=== PATIENT | female | born 1995 | race Caucasian/White ===

== ENCOUNTER 2016-10-01 15:57 | Emergency (ER) | payer BC ==
[~2016-10-01] VITALS: Ht 162.6 cm; Wt 66.7 kg
[~2016-10-01 15:57] MED LIST: ALBU6.7H INH; MEDR4PAK3 PO; ZITH250T PO
[2016-10-01 16:01] VITALS: BP 119/80; PULSE 94; RESP 16; TEMP 98.6; O2SAT 98
--- NOTE | 2016-10-01 16:05 | PD ---
HPI . Left wrist pain for one week Chief Complaint: Musculoskeletal Complaint Time Seen by Provider: 16:05 Travel History International Travel<30 days: No Contact w/Intl Traveler<30days: No Traveled to known affect area: No History of Present Illness HPI 21-year-old female with no past medical history here with complaints of falling on her left wrist approximately one week ago. Unfortunately she was in some financial bind and had to keep working despite this injury and could not seek medical attention. 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 She has not seen any one for this injury. She admits to pain with rotation of the wrist. There is very minimal swelling. She does have point tenderness over the distal ulna. Currently at this moment she denies any pain, but admits to throbbing sensation. She is neurovascularly intact. There are no other complaints. No head injury. PFSH Past Medical History Medical History: Denies Significant Hx Diminished Hearing: No Psychiatric: Yes (ADJUSTMENT REACTION.) Immunizations Current: Yes Migraines: Yes ?: Not Menopausal: No Social History Alcohol Use: No (OCCASIONALLY) Tobacco Use: No Substance Use: No Allergies-Medications (Allergen,Severity, Reaction): Coded Allergies: No Known Allergies (Verified , 10/01/16) Reported Meds & Prescriptions Reported Meds & Active Scripts Active No Active Prescriptions or Reported Medications Review of Systems General / Constitutional: No: Fever Eyes: No: Visual changes HENT: No: Headaches Cardiovascular: No: Chest Pain or Discomfort Respiratory: No: Shortness of Breath Gastrointestinal: No: Abdominal Pain Genitourinary: No: Dysuria Musculoskeletal: Positive: Pain (left wrist pain) Skin: No Rash Neurologic: No: Weakness Psychiatric: No: Depression Endocrine: No: Polydipsia Hematologic/Lymphatic: No: Easy Bruising Physical Exam Narrative GENERAL: AAO x 3, no acute distress, Well-nourished, well-developed patient. SKIN: Warm and dry. No visible rashes or bruising. Mild erythema over the left wrist HEAD: Normocephalic and atraumatic. EYES: No scleral icterus. No injection or drainage. ENT: No nasal drainage noted. Mucous membranes pink. Airway patent. NECK: Supple, trachea midline. No JVD. CARDIOVASCULAR: Regular rate and rhythm without murmurs, gallops, or rubs. RESPIRATORY: Breath sounds equal bilaterally. No accessory muscle use. No rhonchi or rales. GASTROINTESTINAL: Abdomen soft, non-tender, nondistended. EXTREMITIES: No cyanosis or edema. Mild erythema over left wrist. There is point tenderness over the distal ulna. No significant edema. No ecchymosis. Range of motion is limited by pain. Extension is normal. Pain elicited with rotation. BACK: Nontender without obvious deformity. No CVA tenderness. PSYCH: AAO x 3, normal affect. Data Data Last Documented VS Vital Signs Date Time Temp Pulse Resp B/P Pulse Ox O2 Delivery O2 Flow Rate FiO2 10/01/16 16:01 98.6 94 16 119/80 98 Orders Ed Urine Pregnancytest Poc (10/01/16 16:07) Wrist, Complete ([id number]) (10/01/16 16:07) ^ Anatoly Bandage (10/01/16 16:54) MDM Medical Decision Making Medical Screen Exam Complete: Yes Emergency Medical Condition: Yes Medical Record Reviewed: Yes Differential Diagnosis left wrist sprain, left wrist contusion, left wrist fracture Narrative Course 21-year-old female with no past medical history here with complaints of falling on her left wrist approximately one week ago. Unfortunately she was in some financial bind and had to keep working despite this injury and could not seek medical attention. 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 She has not seen any one for this injury. She admits to pain with rotation of the wrist. There is very minimal swelling. She does have point tenderness over the distal ulna. Currently at this moment she denies any pain, but admits to throbbing sensation. She is neurovascularly intact. There are no other complaints. No head injury. Patient seen and examined. She does have tenderness over the distal ulna as well as tenderness with rotation of her wrist. We'll go ahead and check an x-ray. I do not think there is an acute fracture, but she does likely have some type of sprain or contusion. Xray is negative for acute fracture. Discussed anatoly wrap and OTC NSAIDS Patient verbalized understanding of instructions, questions were answered, and thanked me for their care. I advised them if their condition worsens, please return to the nearest emergency room for further care. Diagnosis Primary Impression: Sprain of left wrist Qualified Code: S63.502A - Sprain of left wrist, initial encounter Patient Instructions: General Instructions, Wrist Sprain (ED) Additional Instructions: Please return to emergency department if your symptoms return or worsen. Follow up with your primary care provider. Use [id number] Tylenol, ibuprofen, Aleve as needed for pain. Keep area wrapped as needed for support. You can try ice to help get rid of the inflammation. Med/Other Pt SpecificInfo: No Change to Meds Scripts No Active Prescriptions or Reported Meds Disposition: 01 DISCHARGE HOME Condition: Stable Liseth Goodman Oct 01, 2016 16:05
--- NOTE | 2016-10-01 16:49 | RADHPO ---
EXAM DATE/TIME: 10/01/2016 16:17 [facility] COMPARISON: No previous studies available for comparison. INDICATIONS : Left wrist pain after fall 10 days ago MEDICAL HISTORY : None. SURGICAL HISTORY : None. ENCOUNTER: Initial ACUITY: 1 week PAIN SCORE: 4/10 LOCATION: Left posterior wrist FINDINGS: Three views of the left wrist demonstrate no fracture or dislocation. Mineralization is within normal limits. There is no significant arthropathy. No soft tissue abnormality or radiopaque foreign body i s identified. CONCLUSION: No acute abnormality is identified. Omari Ramos MD on October 01, 2016 at 16:46 Board Certified Radiologist. This report was verified electronically.
== END 2016-10-01 18:01 | disposition home or self-care (01) ==
LOC: PHEFT 15:57
DX: S63.502A Unspecified sprain of left wrist, initial encounter (principal); W19.XXXA Unspecified fall, initial encounter; Y93.9 Activity, unspecified; Y92.9 Unspecified place or not applicable
CPT/HCPCS: 73110; 84703; 99283

== ENCOUNTER 2017-01-31 23:07 | Emergency (ER) | payer BC ==
[~2017-01-31] VITALS: Ht 162.6 cm; Wt 64.3 kg
[2017-01-31 23:12] VITALS: BP 131/79; PULSE 77; RESP 14; TEMP 98.3; O2SAT 100
--- NOTE | 2017-01-31 23:34 | PD ---
HPI Chief Complaint: Abdominal Pain Time Seen by Provider: 23:19 Travel History International Travel<30 days: No Contact w/Intl Traveler<30days: No Traveled to known affect area: No History of Present Illness HPI This 21-year-old female is complaining of lower abdominal pain. She has been having this pain for several weeks but seems to be getting worse. She has a pain in the lower back which is worse on the right. She also has some lower abdominal pain which is worse on the right has about 2 episodes of this pain for a week. It seems to be getting more frequently. She just finished her period. About a month ago she had a positive test for chlamydia and was treated with 4 pills. She has not noted vaginal discharge since then. She had an episode of nausea and vomiting about 2 weeks ago which seemed to clear up. She is not aware of fever PFSH Past Medical History Medical History: Denies Significant Hx Weight (Kg): 3 Diminished Hearing: No Psychiatric: Yes (ADJUSTMENT REACTION.) Immunizations Current: Yes Migraines: Yes Tetanus Vaccination: > 5 Years Influenza Vaccination: No ?: Not LMP: 01/25/17 Menopausal: No Past Surgical History Surgical History: No Previous Surgery Social History Alcohol Use: Yes (OCCASIONALLY) Tobacco Use: No Substance Use: No Allergies-Medications (Allergen,Severity, Reaction): Coded Allergies: No Known Allergies (Verified , 10/01/16) Reported Meds & Prescriptions Reported Meds & Active Scripts Active Lortab (Hydrocodone-Acetaminophen) 7.5-325 Mg Tab 1 Tab PO Q4H PRN Doxycycline Hyclate 100 Mg Cap 100 Mg PO BID Review of Systems General / Constitutional: No: Fever, Chills Eyes: No: Diploplia HENT: No: Headaches, Vertigo Cardiovascular: No: Chest Pain or Discomfort, Palpitations Respiratory: No: Cough, Shortness of Breath Gastrointestinal: Positive: Nausea, No: Vomiting Genitourinary: Positive: Pelvic Pain, No: Frequency Skin: No Rash Neurologic: No: Weakness, Dizziness Hematologic/Lymphatic: No: Easy Bruising Physical Exam Narrative GENERAL: Well-developed female SKIN: Focused skin assessment warm/dry. HEAD: Atraumatic. Normocephalic. EYES: Pupils equal and round. No scleral icterus. No injection or drainage. ENT: No nasal bleeding or discharge. Mucous membranes pink and moist. NECK: Trachea midline. No JVD. CARDIOVASCULAR: Regular rate and rhythm. No murmur appreciated. RESPIRATORY: No accessory muscle use. Clear to auscultation. Breath sounds equal bilaterally. GASTROINTESTINAL: Abdomen soft,, nondistended. Hepatic and splenic margins not palpable. There is some lower abdominal tenderness greater on the right MUSCULOSKELETAL: No obvious deformities. No clubbing. No cyanosis. No edema. NEUROLOGICAL: Awake and alert. No obvious cranial nerve deficits. Motor grossly within normal limits. Normal speech. PSYCHIATRIC: Appropriate mood and affect; insight and judgment normal. Data Data Last Documented VS Vital Signs Date Time Temp Pulse Resp B/P Pulse Ox O2 Delivery O2 Flow Rate FiO2 01/31/17 23:23 18 01/31/17 23:12 98.3 77 131/79 100 Orders Complete Blood Count With Diff (01/31/17 23:26) Basic Metabolic Panel (Bmp) (01/31/17 23:26) Urinalysis - C+S If Indicated (01/31/17 23:26) Ed Urine Pregnancytest Poc (01/31/17 23:26) Gc And Chlamydia Pcr (01/31/17 23:26) Ceftriaxone Inj (Rocephin Inj) (01/31/17 23:45) Acetamin-Hydrocod 325-7.5 Mg ([place] 7.5 (02/01/17 00:00) [facility] Medical Decision Making Medical Screen Exam Complete: Yes Emergency Medical Condition: Yes Medical Record Reviewed: Yes Differential Diagnosis Differential includes ovarian cyst, PID, cervicitis Narrative Course History is not consistent with appendicitis nor is the examination. Exam is consistent with cervicitis, possible ovarian cyst. She was treated for a month ago though this may have recurred. She will be given Rocephin and prescription for doxycycline. She'll also be given prescription for Lortab to use as she doesn't feel the Motrin has been helping sufficiently Diagnosis Primary Impression: Cervicitis Additional Impression: Ovarian cyst Scripts Hydrocodone-Acetaminophen (Lortab)7.5-325 Mg Tab1 Tab PO Q4H PRN (PAIN) #20 TAB Ref 0 Prov:Adan Donovan MD 01/31/17 Doxycycline Hyclate 100 Mg [id number] Mg PO BID #20 CAP Prov:Adan Donovan MD 01/31/17 Disposition: 01 DISCHARGE HOME Condition: Stable Adan Donovan MD Jan 31, 2017 23:34
[2017-01-31] MEDS ORDERED: cefTRIAXone INJ 1,000 MG in SODIUM CHLORIDE 0.9% INJ 100 ML IV ONE (23:45)
[2017-01-31] MEDS ORDERED: DOXY100C PO (23:47)
[2017-01-31] MEDS ORDERED: HYDR-3534 PO (23:47)
[2017-01-31 23:58] LABS: GLUCOSE,URINE NEG (NEG); KETONE, URINE NEG (NEG); NITRITE,URINE NEG (NEG)
[2017-01-31 23:59] LABS: AUTOMATED NEUTROPHIL # 5.5 TH/MM3 (1.8-7.7); BASOPHIL # 0.1 TH/MM3 (0-0.2); BASOPHIL % 0.6 % (0.0-2.0); EOSINOPHIL # 0.1 TH/MM3 (0-0.4); EOSINOPHIL % 1.3 % (0.0-4.0); HEMATOCRIT 43.9 % (35.0-46.0); HEMO FLAGS DIFF FINAL; LYMPH % 34.4 % (9.0-44.0); LYMPHOCYTE # 3.5 TH/MM3 (1.0-4.8); MEAN CELL VOLUME 87.3 FL (80.0-100.0); MEAN CORPUSCULAR HEMOGLOBIN 29.8 PG (27.0-34.0); MEAN CORPUSCULAR HGB CONC 34.2 % (32.0-36.0); MONO % 9.2 % (0.0-8.0); NEUT % 54.5 % (16.0-70.0); PLATELET COUNT 308 TH/MM3 (150-450); RED BLOOD COUNT 5.03 MIL/MM3 (4.00-5.30); RED CELL DISTRIBUTION WIDTH 11.6 % (11.6-17.2); WHITE BLOOD COUNT 10.1 TH/MM3 (4.0-11.0)
[2017-02-01] MEDS ORDERED: ACETAMINOPHEN/HYDROcodone 325 MG/7.5 MG TAB PO ONE
[2017-02-01 00:01] LABS: BLOOD, URINE MOD (NEG); URINE COLOR YELLOW (YELLW/STRAW)
[2017-02-01 00:05] LABS: BACTERIA, URINE OCC /hpf; COMMENT (UR) CULTURE INDICATED; CULTURE IF INDICATED CULTURE INDICATED; POTASSIUM 3.8 MEQ/L (3.5-5.1); SQUAMOUS EPITHELIAL CELL URINE 0-5 /hpf (0-5)
[2017-02-01 00:08] LABS: BICARBONATE 28.3 MEQ/L (21.0-32.0)
[2017-02-01 00:26] VITALS: BP 126/72; PULSE 72; RESP 18; O2SAT 99
[2017-02-01] MEDS ORDERED: MACR100C2 PO (00:34)
--- NOTE | 2017-02-01 00:34 | PD ---
Physical Exam Date Seen by Provider: Feb 01, 2017 Time Seen by Provider: 00:00 Narrative Patient signed out to me by Dr. Platt at 12 AM, awaiting lab work. Suspected cervicitis, treated with antibiotics in the ER. Laboratory Tests Test 01/31/17 23:50 Monocytes (%) (Auto) 9.2 % (0.0-8.0) Urine Occult Blood MOD (NEG) Urine Leukocyte Esterase SMALL (NEG) Urine RBC 10-14 /hpf (0-3) Urine WBC 9-14 /hpf (0-5) Urine Bacteria OCC /hpf (NONE) Estimat Glomerular Filtration 88 ML/MIN (>89) Rate Lab work shows significant UTI as well my plan would be to treat her UTI and have her follow-up with primary care physician. Return for any worsening in symptoms as necessary. The plan has been discussed with her and she states understanding. Data Data Last Documented VS Vital Signs Date Time Temp Pulse Resp B/P Pulse Ox O2 Delivery O2 Flow Rate FiO2 02/01/17 00:26 72 18 126/72 99 Room Air 01/31/17 23:12 98.3 Orders Complete Blood Count With Diff (01/31/17 23:26) Basic Metabolic Panel (Bmp) (01/31/17 23:26) Urinalysis - C+S If Indicated (01/31/17 23:26) Ed Urine Pregnancytest Poc (01/31/17 23:26) Gc And Chlamydia Pcr (01/31/17 23:26) Ceftriaxone Inj (Rocephin Inj) (01/31/17 23:45) Acetamin-Hydrocod 325-7.5 Mg ([place] 7.5 (02/01/17 00:00) Urine Culture (01/31/17 23:50) Azithromycin Powd Pack (Zithromax Powd P (02/01/17 00:45) Labs Laboratory Tests Test 01/31/17 23:50 White Blood Count 10.1 TH/MM3 Red Blood Count 5.03 MIL/MM3 Hemoglobin 15.0 GM/DL Hematocrit 43.9 % Mean Corpuscular Volume 87.3 FL Mean Corpuscular Hemoglobin 29.8 PG Mean Corpuscular Hemoglobin 34.2 % Concent Red Cell Distribution Width 11.6 % Platelet Count 308 TH/MM3 Mean Platelet Volume 7.2 FL Neutrophils (%) (Auto) 54.5 % Lymphocytes (%) (Auto) 34.4 % Monocytes (%) (Auto) 9.2 % Eosinophils (%) (Auto) 1.3 % Basophils (%) (Auto) 0.6 % Neutrophils # (Auto) 5.5 TH/MM3 Lymphocytes # (Auto) 3.5 TH/MM3 Monocytes # (Auto) 0.9 TH/MM3 Eosinophils # (Auto) 0.1 TH/MM3 Basophils # (Auto) 0.1 TH/MM3 CBC Comment DIFF FINAL Differential Comment Urine Color YELLOW Urine Turbidity CLEAR Urine pH 6.0 Urine Specific [place] 1.015 Urine Protein NEG mg/dL Urine Glucose (UA) NEG mg/dL Urine Ketones NEG mg/dL Urine Occult Blood MOD Urine Nitrite NEG Urine Bilirubin NEG Urine Leukocyte Esterase SMALL Urine RBC 10-14 /hpf Urine WBC 9-14 /hpf Urine Squamous Epithelial 0-5 /hpf Cells Urine Bacteria OCC /hpf Microscopic Urinalysis Comment CULTURE INDICATED Sodium Level 141 MEQ/L Potassium Level 3.8 MEQ/L Chloride Level 107 MEQ/L Carbon Dioxide Level 28.3 MEQ/L Anion Gap 6 MEQ/L Blood Urea Nitrogen 14 MG/DL Creatinine 0.83 MG/DL Estimat Glomerular Filtration 88 ML/MIN Rate Random Glucose 101 MG/DL Calcium Level 9.1 MG/DL [facility] Medical Record Reviewed: Yes Supervised Visit with [place]: No Diagnosis Primary Impression: Cervicitis Additional Impressions: Ovarian cyst UTI (urinary tract infection) Patient Instructions: General Instructions Departure Forms: Tests/Procedures Scripts Nitrofurantoin Monohydrate Macrocrystals (Macrobid)100 Mg [id number] Mg PO BID 7 Days Ref 0 Prov:Madiha Linares MD 02/01/17 Hydrocodone-Acetaminophen (Lortab)7.5-325 Mg Tab1 Tab PO Q4H PRN (PAIN) #20 TAB Ref 0 Prov:Adan Donovan MD 01/31/17 Doxycycline Hyclate 100 Mg [id number] Mg PO BID #20 CAP Prov:Adan Donovan MD 01/31/17 Disposition: 01 DISCHARGE HOME Condition: Stable Madiha Linares MD Feb 01, 2017 00:34
[2017-02-01] MEDS ORDERED: AZITHROMYCIN PWD FOR SUSP 1 GM PACKET PO ONE (00:45)
[2017-02-01 01:00] VITALS: BP 122/72; PULSE 72; RESP 18; O2SAT 99
[2017-02-01 05:01] LABS: CHLAMYDIA PCR DETECTED (NOT DETECT); NEISSERIA PCR NOT DETECTED (NOT DETECT)
== END 2017-02-01 01:05 | disposition home or self-care (01) ==
LOC: PHED 23:07
DX: N72 Inflammatory disease of cervix uteri (principal); B96.89 Other specified bacterial agents as the cause of diseases classified elsewhere; N83.209 Unspecified ovarian cyst, unspecified side
CPT/HCPCS: 80048; 81001; 84703; 85025; 87086; 87491; 87591; 96365; 99284; J0696

== ENCOUNTER 2017-03-18 19:05 | Emergency (ER) | payer BC ==
[~2017-03-18] VITALS: Ht 162.6 cm; Wt 65.0 kg
[~2017-03-18 19:05] MED LIST changes: -ALBU6.7H INH; +DOXY100C PO; +HYDR-3534 PO; +MACR100C2 PO; -MEDR4PAK3 PO; -ZITH250T PO
[2017-03-18 19:08] VITALS: BP 145/77; PULSE 92; RESP 16; TEMP 98.7; O2SAT 99
--- NOTE | 2017-03-18 19:59 | PD ---
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 The back pain is reproducible by movement and by pressing on the right side of the lumbosacral area. The patient denies any fever. She was treated apparently with doxycycline and metronidazole for bacterial vaginosis and Chlamydia area she states that the medicine made her nauseated, she does not know which medicine made her nauseated and she did not complete the medicine. She claims not to been sexually active since last exam. She is G0, P0, A0. PFSH Past Medical History Medical History: Denies Significant Hx Weight (Kg): 3 Diminished Hearing: No Headaches: Yes (OCCASIONAL HEADACHES) Psychiatric: Yes (ADJUSTMENT REACTION.) Immunizations Current: Yes Migraines: Yes Influenza Vaccination: No ?: Not LMP: 02/21/17 Menopausal: No Past Surgical History Surgical History: No Previous Surgery Section: Yes Social History Alcohol Use: Yes (OCCASIONALLY) Tobacco Use: Yes Substance Use: Yes (occasionally marijuana) Allergies-Medications (Allergen,Severity, Reaction): Coded Allergies: No Known Allergies (Verified , 10/01/16) Reported Meds & Prescriptions Reported Meds & Active Scripts Active Review of Systems Except as stated in HPI: all other systems reviewed are Neg Physical Exam Narrative GENERAL: The patient is alert, oriented 3 and slight apparent distress with her low back pain and pelvic discomfort. Her vital signs show blood pressure once 145/77 and pulse rate of 92 but otherwise normal. SKIN: Focused skin assessment warm/dry. HEAD: Atraumatic. Normocephalic. EYES: Pupils equal and round. No scleral icterus. No injection or drainage. ENT: No nasal bleeding or discharge. Mucous membranes pink and moist. NECK: Trachea midline. No JVD. CARDIOVASCULAR: Regular rate and rhythm. No murmur appreciated. RESPIRATORY: No accessory muscle use. Clear to auscultation. Breath sounds equal bilaterally. GASTROINTESTINAL: Abdomen soft, with minimal discomfort to direct palpation in the bilateral pelvis, nondistended. Hepatic and splenic margins not palpable. No guarding or rebound is present. MUSCULOSKELETAL: No obvious deformities. No clubbing. No cyanosis. No edema. I can completely reproduce the patient's back pain by pressing on the musculature to the right of the lumbosacral area. This is about 10 cm away from the midline. NEUROLOGICAL: Awake and alert. No obvious cranial nerve deficits. Motor grossly within normal limits. Normal speech. PSYCHIATRIC: Appropriate mood and affect; insight and judgment normal. GENITOURINARY: Normal external genitalia without lesions or erythema. Vaginal vault without blood and there is a white, [id number] drainage. Cervical os was closed with clear drainage. No cervical motion tenderness. Uterus nontender and nonenlarged. Bilateral adnexa nontender without masses. Data Data Last Documented VS Vital Signs Date Time Temp Pulse Resp B/P (MAP) Pulse Ox O2 Delivery O2 Flow Rate FiO2 03/18/17 19:08 98.7 92 16 145/77 (99) 99 Orders Orders Complete Blood Count With Diff (03/18/17 19:51) Basic Metabolic Panel (Bmp) (03/18/17 19:51) Gc And Chlamydia Pcr (03/18/17 19:51) Wet Prep Profile (03/18/17 19:51) Urinalysis - C+S If Indicated (03/18/17 19:51) Ed Urine Pregnancytest Poc (03/18/17 19:51) Labs Laboratory Tests Test 03/18/17 20:00 03/18/17 20:10 Urine Collection Type CLEAN CATCH Urine Color YELLOW Urine Turbidity CLOUDY Urine pH 7.5 Urine Specific [place] 1.019 Urine Protein TRACE mg/dL Urine Glucose (UA) NEG mg/dL Urine Ketones NEG mg/dL Urine Occult Blood SMALL Urine Nitrite NEG Urine Bilirubin NEG Urine Leukocyte Esterase NEG Urine RBC 0-3 /hpf Urine WBC 0-2 /hpf Urine Amorphous Sediment MOD Urine Bacteria FEW /hpf Microscopic Urinalysis Comment CULT NOT INDICATED Urine Collection Time 2000 Clue Cells (Wet Prep) NONE SEEN Vaginal Trichomonas (Wet Prep) NONE SEEN Vaginal Yeast (Wet Prep) NONE SEEN White Blood Count 7.8 TH/MM3 Red Blood Count 4.55 MIL/MM3 Hemoglobin 13.7 GM/DL Hematocrit 40.0 % Mean Corpuscular Volume 87.9 FL Mean Corpuscular Hemoglobin 30.0 PG Mean Corpuscular Hemoglobin Concent 34.2 % Red Cell Distribution Width 11.8 % Platelet Count 273 TH/MM3 Mean Platelet Volume 7.5 FL Neutrophils (%) (Auto) 63.8 % Lymphocytes (%) (Auto) 27.4 % Monocytes (%) (Auto) 7.6 % Eosinophils (%) (Auto) 0.6 % Basophils (%) (Auto) 0.6 % Neutrophils # (Auto) 5.1 TH/MM3 Lymphocytes # (Auto) 2.1 TH/MM3 Monocytes # (Auto) 0.6 TH/MM3 Eosinophils # (Auto) 0.0 TH/MM3 Basophils # (Auto) 0.0 TH/MM3 CBC Comment DIFF FINAL Differential Comment Blood Urea Nitrogen 14 MG/DL Creatinine 0.68 MG/DL Random Glucose 97 MG/DL Calcium Level 8.6 MG/DL Sodium Level 139 MEQ/L Potassium Level 3.8 MEQ/L Chloride Level 107 MEQ/L Carbon Dioxide Level 24.7 MEQ/L Anion Gap 7 MEQ/L Estimat Glomerular Filtration Rate 110 ML/MIN MDM Medical Decision Making Medical Screen Exam Complete: Yes Emergency Medical Condition: Yes Medical Record Reviewed: Yes Interpretation(s) The wet prep is negative for clue cells, Trichomonas and yeast. The basic metabolic profile is normal. The urine shows cloudy turbidity, small occult blood but is otherwise unremarkable and culture is not indicated. The CBC is normal. The urine test is negative. Differential Diagnosis PID, muscle strain lumbosacral area, herniated nucleus pulposus, bacterial vaginosis, Trichomonas vaginitis, monilial vaginitis, Narrative Course At this time there is no evidence for PID or pelvic infection at this time. The wet prep, CBC and basic metabolic profile are all normal. She does have an acute lumbosacral strain. She is not . Plan: The patient be put on Flexeril and Motrin. 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 Diagnosis Primary Impression: Acute lumbosacral myofascial strain Additional Instructions: For about 3 days take the Motrin regularly, 1 tablet 3 times daily. This will give you high anti-inflammatory levels and this usually helps this kind of back pain to go away. The Flexeril can make you sleepy, it is one tablet 3 times daily. Follow-up with a primary care physician/physical therapy instructor as soon as you can. Med/Other Pt SpecificInfo: Prescription(s) given Scripts Ibuprofen (Ibuprofen) 600 Mg Tab 600 MG PO TID, #33 TAB 0 Refills Prov: Esvin Vila MD 03/18/17 Cyclobenzaprine (Flexeril) 10 Mg Tab 10 MG PO TID for Muscle Spasm, #30 TAB 0 Refills Prov: Esvin Vila MD 03/18/17 Disposition: 01 DISCHARGE HOME Condition: Stable Esvin Vila MD Mar 18, 2017 19:59
[2017-03-18 20:11] LABS: BLOOD, URINE SMALL (NEG); GLUCOSE,URINE NEG (NEG); KETONE, URINE NEG (NEG); NITRITE,URINE NEG (NEG); PH, URINE 7.5 (5.0-8.5)
[2017-03-18 20:21] LABS: METHOD OF COLLECTION CLEAN CATCH; URINE COLOR YELLOW (YELLW/STRAW)
[2017-03-18 20:23] LABS: BACTERIA, URINE FEW /hpf; COMMENT (UR) CULT NOT INDICATED; COMMENT2 (UR) CULT NOT INDICATED; CULTURE IF INDICATED CULT NOT INDICATED; RBC, URINE 0-3 /hpf (0-3); WBC, URINE 0-2 /hpf (0-5)
[2017-03-18 20:29] LABS: AUTOMATED NEUTROPHIL # 5.1 TH/MM3 (1.8-7.7); BASOPHIL % 0.6 % (0.0-2.0); EOSINOPHIL % 0.6 % (0.0-4.0); HEMO FLAGS DIFF FINAL; LYMPH % 27.4 % (9.0-44.0); LYMPHOCYTE # 2.1 TH/MM3 (1.0-4.8); MEAN CELL VOLUME 87.9 FL (80.0-100.0); MEAN CORPUSCULAR HGB CONC 34.2 % (32.0-36.0); MONO % 7.6 % (0.0-8.0); NEUT % 63.8 % (16.0-70.0); PLATELET COUNT 273 TH/MM3 (150-450); RED BLOOD COUNT 4.55 MIL/MM3 (4.00-5.30); RED CELL DISTRIBUTION WIDTH 11.8 % (11.6-17.2); WHITE BLOOD COUNT 7.8 TH/MM3 (4.0-11.0)
[2017-03-18 20:33] LABS: POTASSIUM 3.8 MEQ/L (3.5-5.1)
[2017-03-18 20:37] LABS: BICARBONATE 24.7 MEQ/L (21.0-32.0)
[2017-03-18] MEDS ORDERED: IBUP-232 PO (21:27)
[2017-03-18] MEDS ORDERED: CYCL1TAB29 PO (21:27)
[2017-03-18] MEDS ORDERED: IBUPROFEN 600 MG TAB PO ONE (21:30)
[2017-03-18] MEDS ORDERED: CYCLOBENZAPRINE HCL 10 MG TAB PO ONE (21:45)
[2017-03-18 21:51] VITALS: BP 107/63; TEMP 98.2
[2017-03-19 00:49] LABS: CHLAMYDIA PCR NOT DETECTED (NOT DETECT); NEISSERIA PCR NOT DETECTED (NOT DETECT)
== END 2017-03-18 21:52 | disposition home or self-care (01) ==
LOC: PHED 19:05
DX: S39.012A Strain of muscle, fascia and tendon of lower back, initial encounter (principal); X58.XXXA Exposure to other specified factors, initial encounter; F17.210 Nicotine dependence, cigarettes, uncomplicated
CPT/HCPCS: 80048; 81001; 84703; 85025; 87210; 87491; 87591; 99284